=== PATIENT | male | born 1960 | race Caucasian/White ===

== ENCOUNTER → 2017-02-28 | Outpatient (CLI) | payer BC ==
[~2017-02-28] MED LIST: ATOR10TA82 PO; LEVO100T7 PO; MISCCAP80 PO; PRT/20 PO; RANI150T3 PO; VITAMIN D PO
[2017-02-28 09:37] LABS: HEMATOCRIT 41.6 % (42-52); MEAN CELL VOLUME 86.8 fL (80-100); MEAN CORPUSCULAR HEMOGLOBIN 30.5 pg (25-34); MEAN CORPUSCULAR HGB CONC 35.1 g/dl (32-36); MEAN PLATELET VOLUME 11.2 fL (7.4-10.4); PLATELET COUNT 177 K/uL (130-400); RED BLOOD COUNT 4.79 M/uL (4.7-6.1); WHITE BLOOD COUNT 5.05 K/uL (4.8-10.8)
[2017-02-28 09:54] LABS: BLOOD UREA NITROGEN 19 mg/dl (7-18); BUN/CREATININE RATIO 17.5 (10-20); CARBON DIOXIDE 30 mmol/L (21-32); CHLORIDE 107 mmol/L (98-107); GLUCOSE 87 mg/dl (70-99); SODIUM 142 mmol/L (136-145)
== END | disposition home or self-care (01) ==
LOC: C.CPL 07:13
PROVIDERS: ATTEND Physical Medicine & Rehabilitation Sports Medicine
DX: Z01.818 Encounter for other preprocedural examination (principal); Z96.9 Presence of functional implant, unspecified; R00.1 Bradycardia, unspecified; I45.10 Unspecified right bundle-branch block

== ENCOUNTER → 2017-03-03 | Day surgery (SDC) | payer BC ==
[2017-02-27 13:44] VITALS: Ht 190.5 cm; Wt 95.5 kg
[~2017-03-03] VITALS: Ht 190.5 cm; Wt 95.5 kg
[~2017-03-03] MED LIST changes: +ATROPINE SULFATE 0.1 MG/ML 5ML SYR IV PRN; +BUPIVACAINE 0.5 % 5 MG/1 ML MPF 30ML VIAL ONE; +CLINDAMYCIN PHOS 150 MG/ML 2 ML VIAL IV SCH; +DEXAMETHASONE SOD INJ 4 MG/ML VIAL IV PRN; +DEXAMETHASONE SOD INJ 4 MG/ML VIAL ONE; +EpHEDrine SULFATE INJ 50 MG/ML AMP IV PRN; +FENTANYL CITRATE INJ 50 MCG/1 ML 2 ML VIAL IV PRN; +FENTANYL CITRATE INJ 50 MCG/1 ML 2 ML VIAL ONE; +GLYCOPYRROLATE INJ 0.2 MG/ML VIAL ONE; +KETOROLAC TROMETHAMINE 30 MG/ML VIAL IV. PRN; +LABETALOL HCL IV 5 MG/ML 20ML IV PRN; +LACTATED RINGER'S 1000ML 1,000 ML IV SCH; +LIDOCAINE HCL 1% 20 ML VIAL ONE; +LIDOCAINE HCL 2% 2 ML VIAL (20MG/ML) ONE; +METOCLOPRAMIDE HCL INJ 5 MG/ML 2 ML VIAL IV PRN; +MIDAZOLAM HCL 1 MG/ML 2ML VIAL ONE; +MoRPHine SULFATE 10 MG/ML CARP/VIAL IV PRN; +MoRPHine SULFATE 4 MG/ML 1 ML CARP\\VIAL IV PRN; +ONDANSETRON INJ 2 MG/ML 2 ML VIAL IV PRN; +ONDANSETRON INJ 2 MG/ML 2 ML VIAL ONE; +OXYCODONE/ACETAMINOPHEN 5-325 TAB PO PRN; +PHENYLEPHRINE 100MCG/ML 5ML SYR IV PRN; +PROPOFOL IV EMULSION 10 MG/ML 20 ML VIAL IV ONE; +SODIUM CHLORIDE 0.9% 1000ML 1,000 ML IV SCH
--- NOTE | 2017-03-03 11:23 | History & Physical Bridge - [place] ---
H&P Re-Evaluation Bridge Note: I have examined the patient, reviewed the History & Physical and in the interval since the performance of the History & Physical I have noted the following changes of clinical significance: No changes noted
--- NOTE | 2017-03-03 11:56 | [facility] Post Operative Brief Note ---
Immediate Operative Summary Operative Date Mar 03, 2017. Pre-Operative Diagnosis Right fourth toe painful hardware Post-Operative Diagnosis Same as preop Procedure(s) Performed Right Fourth Toe Hardware Removal Surgeon Dr. Prieto Professor Of Sociology Surgeon(s) Renan Washington MD Estimated Blood Loss 5 mL Findings same Specimens Two screws were removed. Dr. Prieto stated there was no failure on the explants and gave permission to give the explants to the patient. The explants will be returned to the patient after cleaning and decontamination. The explants will be placed in a rigid container with a biohazard label and a patient identification sticker. Drains none Anesthesia local, sedation Complication(s) None Disposition Recovery Room / PACU
--- NOTE | 2017-03-03 11:56 | Discharge Instructions-SurgCtr ---
Discharge Instructions Date of Service Mar 03, 2017. Visit Reason for Visit: Right 4TH Toe Painful Hardware Discharge Discharge Diagnosis / Problem: s/p right 4th toe hardware removal Discharge Goals Goal(s): Decrease discomfort, Improve function, Increase independence Activity Recommendations Activity Limitations: as noted below Lifting Limitations: gradually increase as tolerated Exercise/Sports Limitations: until after follow-up appointment Shower/Bathe: keep incision dry Driving or Machine Use: resume 3 days after discharge Weightbearing Status: Right weightbearing (as tolerated) Anesthesia . Post Anesthesia Instructions: If you have had General Anesthesia or IV Sedation: * Do not drive today. * Resume driving when surgeon permits. * Do not make important decisions or sign legal documents today. * Call surgeon for: 1. Temperature elevations greater than 101 degrees F. 2. Uncontrollable pain. 3. Excessive bleeding. 4. Persistent nausea and vomiting. 5. Medication intolerance (nausea, vomiting or rash). * For nausea and vomiting use only clear liquids such as: tea, soda, bouillon until nausea subsides, then gradually increase diet as tolerated. * If you have any concerns or questions, call your surgeon's office. If physician is unavailable and it is an emergency, call 911 or go to the nearest emergency room. . Instructions / Follow-Up Instructions / Follow-Up DIET: * Resume previous diet. MEDICATIONS: * Please take your prescriptions as instructed at your pre-op appointment and/ or see medication discharge instructions listed above. * If concerns develop, call your physician's office at . SPECIAL CARE INSTRUCTIONS: * Ice/Elevate as instructed. * Keep dressing clean, dry, intact. * Your surgical extremity may be discolored due to prepping agents used on the skin. A bluish-green tint is a normal variant and should not cause alarm. Call your doctor at [phone] if: * Temperature above 101 degrees * Pain not relieved by pain medicine ordered * There is increased drainage or redness from any incision * You have any unanswered questions, problems or concerns. FOLLOW UP VISIT: * If not already scheduled, please call the office at to schedule a follow-up appointment. Diet Recommendations Home Diet: no limitations Procedures Procedures Performed: Right Fourth Toe Hardware Removal Pending Studies Studies pending at discharge: no Medical Emergencies . Who to Call and When: Medical Emergencies: If at any time you feel your situation is an emergency, please call 911 immediately. . Non-Emergent Contact Non-Emergency issues call your: Primary Care Provider . . "Provider Documentation" section prepared by Minh Meek. [place] Drug Monitoring Program Search Results: no issues identified
[2017-03-03 12:10] VITALS: TEMP 36.9
--- NOTE | 2017-03-03 12:20 | [facility] Operative Report ---
Operative Report Operative Date Mar 03, 2017. Pre-Operative Diagnosis Right fourth toe painful hardware Post-Operative Diagnosis Same as preop Procedure(s) Performed Right Fourth Toe Hardware Removal Surgeon Dr. Prieto Pastry Decorator Surgeon(s) Renan Washington MD Estimated Blood Loss 5 mL Findings Prominent painful retained orthopaedic hardware right 4th toe. Specimens Two screws were removed. Dr. Prieto stated there was no failure on the explants and gave permission to give the explants to the patient. The explants will be returned to the patient after cleaning and decontamination. The explants will be placed in a rigid container with a biohazard label and a patient identification sticker. Drains n/a Anesthesia local + sedation Complication(s) None Disposition Recovery Room / PACU (Stable) Implants n/a Indications The patient is a 56 male with a history of previous right fourth toe open reduction internal fixation, with painful retained hardware, that has caused a large callus over the most distal screw. The patient understands the risks of surgery, which include but are not limited to: bleeding, infection, re-operation , damage to nerves and arteries, continued pain, being unable to remove all of the hardware, and DVT. The patient understands all of these instructions and explanations, all of their questions have been satisfactorily addressed. The patient has elected to proceed with surgery and the informed consent was signed. Description of Procedure The patient was taken to the Operating Room and placed in the supine position on the operating table. After general anesthetic was administered a multidisciplinary time-out was performed identifying my initials on the right lower limb as the correct and operative limb. Prior to any incisions, 1 grams of intravenous Ancef was given. The right leg was prepped and draped in the usual Orthopaedic sterile fashion. The planned incision centered over and ellipsing out the callus over the lateral aspect of the right fourth toe was marked. The skin edges were injected with a 50:50 mixture of 1% lidocaine and 0.5 % Marcaine plain as well as a digital block was performed for a total of 6 cc. The callused skin lesions was ellipsed and excised with a scalpel and the 2 distal screws were identified and cleared of any soft tissue to allow the screwdriver to remove both of them from the bone. Any scar tissue was removed with a rongeur. The wound was copiously irrigated. Final x-rays were obtained showing the previous healed fracture and the single most proximal screw still remaining as planned. The skin was closed with 3-0 Prolene using horizontal mattress fashion. The limb was cleaned and dried. The wound was covered Xerofoam, 4 x 4's, sterile Adonis, and Coban. The sponge and needle counts were correct. POST-OP: Patient will be weightbearing as tolerated. No running or jumping for 6-8 weeks. The patient was given pain medicine. She will follow-up with Dr. Prieto in 10-15 days. I attest to the content of the Intraoperative Record and any orders documented therein. Any exceptions are noted below.
--- NOTE | 2017-03-03 12:23 | Anesthesia Progress Nt - [facility] ---
Anesthesia Post Op Note Date & Time Mar 03, 2017 at 12:23 Vital Signs Pain Intensity: 0 Vital Signs Past 12 Hours Date Time Temp Pulse Resp B/P Pulse Ox O2 Delivery O2 Flow Rate FiO2 03/03/17 12:10 36.9 61 16 124/79 96 Room Air 03/03/17 10:10 36.5 47 20 131/82 98 Room Air Notes Mental Status: alert / awake / arousable, participated in evaluation Pt Amnestic to Procedure: Yes Nausea / Vomiting: adequately controlled Pain: adequately controlled Airway Patency, RR, SpO2: stable & adequate BP & HR: stable & adequate Hydration State: stable & adequate Anesthetic Complications: no major complications apparent
[2017-03-03 12:35] VITALS: BP 124/77; PULSE 52; O2SAT 98
== END | disposition home or self-care (01) ==
LOC: X.SURG 09:39
PROVIDERS: ATTEND Orthopaedic Surgery Sports Medicine
DX: T84.84XD Pain due to internal orthopedic prosthetic devices, implants and grafts, subsequent encounter (principal); Y83.1 Surgical operation with implant of artificial internal device as the cause of abnormal reaction of the patient, or of later complication, without mention of misadventure at the time of the procedure; L84 Corns and callosities; E03.9 Hypothyroidism, unspecified; N40.0 Benign prostatic hyperplasia without lower urinary tract symptoms; N52.9 Male erectile dysfunction, unspecified; K21.9 Gastro-esophageal reflux disease without esophagitis; E78.5 Hyperlipidemia, unspecified; Z80.3 Family history of malignant neoplasm of breast; Z82.49 Family history of ischemic heart disease and other diseases of the circulatory system; Z80.49 Family history of malignant neoplasm of other genital organs; Z79.899 Other long term (current) drug therapy

== ENCOUNTER → 2017-04-22 | Outpatient (CLI) | payer BC ==
[~2017-04-22] MED LIST changes: -ATROPINE SULFATE 0.1 MG/ML 5ML SYR IV PRN; -BUPIVACAINE 0.5 % 5 MG/1 ML MPF 30ML VIAL ONE; -CLINDAMYCIN PHOS 150 MG/ML 2 ML VIAL IV SCH; -DEXAMETHASONE SOD INJ 4 MG/ML VIAL IV PRN; -DEXAMETHASONE SOD INJ 4 MG/ML VIAL ONE; -EpHEDrine SULFATE INJ 50 MG/ML AMP IV PRN; -FENTANYL CITRATE INJ 50 MCG/1 ML 2 ML VIAL IV PRN; -FENTANYL CITRATE INJ 50 MCG/1 ML 2 ML VIAL ONE; -GLYCOPYRROLATE INJ 0.2 MG/ML VIAL ONE; -KETOROLAC TROMETHAMINE 30 MG/ML VIAL IV. PRN; -LABETALOL HCL IV 5 MG/ML 20ML IV PRN; -LACTATED RINGER'S 1000ML 1,000 ML IV SCH; -LIDOCAINE HCL 1% 20 ML VIAL ONE; -LIDOCAINE HCL 2% 2 ML VIAL (20MG/ML) ONE; -METOCLOPRAMIDE HCL INJ 5 MG/ML 2 ML VIAL IV PRN; -MIDAZOLAM HCL 1 MG/ML 2ML VIAL ONE; -MoRPHine SULFATE 10 MG/ML CARP/VIAL IV PRN; -MoRPHine SULFATE 4 MG/ML 1 ML CARP\\VIAL IV PRN; -ONDANSETRON INJ 2 MG/ML 2 ML VIAL IV PRN; -ONDANSETRON INJ 2 MG/ML 2 ML VIAL ONE; -OXYCODONE/ACETAMINOPHEN 5-325 TAB PO PRN; -PHENYLEPHRINE 100MCG/ML 5ML SYR IV PRN; -PROPOFOL IV EMULSION 10 MG/ML 20 ML VIAL IV ONE; -SODIUM CHLORIDE 0.9% 1000ML 1,000 ML IV SCH
== END | disposition home or self-care (01) ==
LOC: C.RDSM 12:55
PROVIDERS: ATTEND Orthopaedic Surgery Sports Medicine
DX: Z09 Encounter for follow-up examination after completed treatment for conditions other than malignant neoplasm (principal); M79.674 Pain in right toe(s)